=== PATIENT | male | born 1955 | race Caucasian/White ===

== ENCOUNTER 2016-11-17 12:22 | Emergency (ER) | payer OTHER ==
[2016-11-17] MEDS ORDERED: SODIUM CHLORIDE 0.9% 1,000 ML IV ONE (12:58)
[2016-11-17] MEDS ORDERED: ADENOSINE 6 MG/2 ML VIAL IVP ONE ×2 (12:58→13:15)
[2016-11-17] MEDS ORDERED: ADENOSINE 6 MG/2 ML VIAL IVP STA (12:58)
[2016-11-17] MEDS ORDERED: METOPROLOL TARTRATE 50 MG TABLET PO STA (13:45)
[2016-11-17] MEDS ORDERED: METOPROLOL TARTRATE 25 MG TABLET ONE (13:49)
== END 2016-11-17 14:12 | disposition home or self-care (01) ==
DX: I47.1 Supraventricular tachycardia (principal); I10 Essential (primary) hypertension; E78.00 Pure hypercholesterolemia, unspecified; K21.9 Gastro-esophageal reflux disease without esophagitis
CPT/HCPCS: 36415; 80053; 83690; 83735; 84100; 85025; 93005; 93010; 96374; 99284; A9270; J0153

== ENCOUNTER 2017-10-20 07:58 | Emergency (ER) | payer OTHER ==
--- NOTE | 2017-10-20 08:54 | ED Physician Documentation ---
History of Present Illness - Stated complaint Stated Complaint: R EYE REDNESS - Chief complaint Chief Complaint: Heent - Additonal information Additional information: hx from pt 62 male to ER with erythema R eye awoke with today no trauma no dc no vision change has dry eyes chroncially his concern is pink eye Review of Systems Eyes: reports: Other (erythema). denies: Decreased vision PD PAST MEDICAL HISTORY - Past Medical History Cardiovascular: Hypertension, High cholesterol Respiratory: None Neuro: None Endocrine/Autoimmune: Other GI: GERD : Frequency Psych: None Musculoskeletal: None - Past Surgical History Past Surgical History: No - Present Medications Home Medications: Ambulatory Orders Medication Instructions Recorded Confirmed Aspirin [Aspir 81] 81 mg PO DAILY 08/23/14 01/14/16 Atorvastatin Calcium [Lipitor] 40 mg PO DAILY 08/23/14 11/17/16 Multivitamin [Multivitamins] 1 tab PO DAILY 08/23/14 01/14/16 Krill/Ringgold-3/Dha/Epa/Lipids [Hm 1 each PO .FREQ 01/14/16 11/17/16 Megakrill 500 mg Softgel] Losartan [Cozaar] 100 mg PO DAILY 01/14/16 11/17/16 Metoprolol Tartrate [Lopressor] 25 mg PO BID #60 tablet 11/17/16 metFORMIN [Glucophage] 500 mg PO DAILY 11/17/16 11/17/16 - Allergies Allergies/Adverse Reactions: Allergies Allergy/AdvReac Type Severity Reaction Status Date / Time ibuprofen AdvReac Unknown Verified 11/17/16 12:45 - Social History Does the pt smoke?: No Smoking Status: Never smoker Does the pt drink ETOH?: No Does the pt have substance abuse?: No - Immunizations Immunizations are current?: Yes - POLST Patient has POLST: No PD ED PE NORMAL - Vitals Vital signs reviewed: Yes - HEENT HEENT: PERRL, EOMI, Other (subconj hemorrhage, globes soft, PERRL, no dc, no lid erythema) Results - Vitals Vitals: Vital Signs - 24 hr 10/20/17 08:12 Temperature 36.2 C L Heart Rate 79 Respiratory 17 Rate Blood Pressure 180/91 H O2 Saturation 96 Oxygen O2 Source Room air Departure - Departure Disposition: 01 Home, Self Care Clinical Impression: Subconjunctival hemorrhage Qualifiers: Laterality: right Qualified Code(s): H11.31 - Conjunctival hemorrhage, right eye Condition: Good Instructions: ED Eye Injury Subconj Hemorrhage Follow-Up: MARCUS CRUZ MD [Primary Care Provider] - Comments: This does not look like pink eye. It looks like a broken blood vessel over the sclera It should get better on its own over about 2 weeks You are not contagious and can go back to work. If you do develop discharge and matting, call me in the ER anytime between 7AM and 5 PM the next three days Please get your blood pressure rechecked - it was high today Forms: Activity restrictions
[2017-10-20 09:06] VITALS: BP 145/84
== END 2017-10-20 09:02 | disposition home or self-care (01) ==
LOC: ED 07:58
DX: H11.31 Conjunctival hemorrhage, right eye (principal); I10 Essential (primary) hypertension; E78.00 Pure hypercholesterolemia, unspecified
CPT/HCPCS: 99282; 99283

== ENCOUNTER 2020-09-21 09:41 | Outpatient (CLI) | payer MEDICARE, OTHER ==
--- NOTE | 2020-09-21 12:27 | SLEEP CARE CONSULTATION ---
Information from patient questionnaire entered by Mame Watkins. I have reviewed and concur with the information entered by Mame Watkins. This document represents the service I personally performed and the decisions made by me, Soumya Caro MD, [facility]. History of Present Illness Service Date and Time: 09/21/2020 0941 Reason for Visit: New patient Chief Complaint: reports: Observed pauses in breathing (causes abrupt waking up) Date of Onset: 10 plus years Usual bedtime: 9 - 10 pm Time it takes to fall asleep: depends on sinuse drainage - sometimes 4 hours Snores at night: Yes Observed to quit breathing while asleep: No Sleeps alone due to snoring: Yes Number of times waking at night: 3-4 Reasons for waking at night: reports: Bathroom (taking Januvia, makes me urinate frequently) Toss, Turn, or Twitch while sleeping: Yes Recalls having dreams: Yes Usually gets out of bed at: 7:30- 9 am Feels refreshed in the morning: No Morning headache: No Sleepy or fatigued during the day: Yes Ever fallen asleep while driving: No Takes day naps: Yes Dreams during day naps: No Prior sleep studies: No Additional HPI information: I had the pleasure of seeing Mr. Franklin today regarding the possibility of him having a sleep disorder. As you know, he is a 65 year old gentleman who complains of loud snore and observed apneas for the past 10+ years. His has obstructive sleep apnea-hypopnea and uses a CPAP. He reports waking up frequently at night to urinate. He wakes up feeling tired and complains of excessive daytime sleepiness. - Parasomnia Symptoms Ever been unable to move upon waking from sleep: No Ever felt weak in the knees when startled or emotional: No Bothered by creepy, crawly, restless sensations in legs: No Problems with memory or concentration: Yes Subjective Initial [place] Sleepiness Scale score: 14 (in 2020) Past Medical History Past Medical History: reports: Hypertension, Diabetes, Arthritis, Arrythmia, GERD, Other (superventiculartacharcardia, diviculitus) Social History The patient's occupation is a RETIRED. Patient is and lives in [place]. Have you smoked in the past 12 months: No Alcohol use: No Caffeine use: No Allergies and Home Medications Drug allergies reviewed: Yes Home medication list reviewed: Yes Review of Systems Weight loss over past 5 years: 14 Cardiovascular: reports: high blood pressure, irregular heart rate or pulse Gastrointestinal: reports: heartburn Urinary: reports: frequency Neurological: denies: headaches, seizure, head trauma, disorientation, speech dysfunction, gait or balance problems, fainting or unconsciousness, other Ear/Nose/Throat: reports: nasal congestion, sinus problems, hoarseness Endocrine: reports: increased urination Musculoskeletal: reports: joint pain, neck pain, back pain, joint swelling Immunologic: denies: sneezing, rash, itching, allergies to food or environment, other Physical Exam Vital signs obtained and entered by: I had the pleasure of seeing Mr. Franklin today regarding the possibility of h Height: 5 ft 10 in Weight: 218 lb Body Mass Index: 31.2 BMI Classification: Obese Impression and Plan IMPRESSION: 1. Obstructive Sleep Apnea-Hypopnea Syndrome, as suggested by history of loud and irregular snoring, observed cessation of breath while asleep, frequent awakenings during the night, unrefreshed sleep, and daytime hypersomnolence. Narrow oropharynx and obesity are common predisposing factors for obstructive sleep apnea-hypopnea syndrome. Untreated obstructive sleep apnea can also cause hypertension. I recommend proceeding to polysomnography to confirm the diagnosis and to assess severity. I informed the patient of what the sleep studies involve and after some discussion, he agreed to proceed. Plan: 1. Schedule an in-laboratory polysomnography 2. Avoid long distance driving or when feeling sleepy. 3. Avoid alcohol, sedative and muscle relaxant around bedtime. 4. Attempt to lose weight. 5. Return for a follow up after the sleep study. Time Spent with Patient (minutes): 15
== END 2020-09-21 09:42 | disposition home or self-care (01) ==
LOC: SC 09:41
PROVIDERS: ATTEND Internal Medicine Pulmonary Disease
DX: G47.10 Hypersomnia, unspecified (principal); G47.8 Other sleep disorders; R06.81 Apnea, not elsewhere classified; R06.83 Snoring; E66.9 Obesity, unspecified; Z68.31 Body mass index [BMI] 31.0-31.9, adult
CPT/HCPCS: 99202; G0463; 99212

== ENCOUNTER 2021-03-04 19:16 | Outpatient (CLI) | payer MEDICARE, OTHER | END 2021-03-04 19:17 | disposition home or self-care (01) | LOC: SC 19:16 | PROVIDERS: ATTEND Internal Medicine Pulmonary Disease | DX: G47.33 Obstructive sleep apnea (adult) (pediatric) (principal); G47.61 Periodic limb movement disorder | CPT/HCPCS: 95810 ==

== ENCOUNTER 2021-03-15 10:55 | Outpatient (CLI) | payer MEDICARE, OTHER ==
--- NOTE | 2021-03-15 17:56 | SLEEP CARE CONSULTATION ---
Information from patient questionnaire entered by Betty Mcmillan. I have reviewed and concur with the information entered by Betty Mcmillan. This document represents the service I personally performed and the decisions made by me, Soumya Caro MD, [facility]. History of Present Illness Service Date and Time: 03/15/2021 1055 Initial [place] Sleepiness Scale score: 14 Current [place] Sleepiness Scale score: 13 Additional HPI information: HPI: Mr. Franklin returned for follow up of the sleep study he had on 03/04/2021. The polysomnography showed that the patient had poor sleep efficiency due to frequent and prolonged awakenings throughout the night. The sleep architecture was abnormal for sleep fragmentation and lack of REM sleep. Respiratory monitoring showed severe obstructive sleep apnea-hypopnea (AHI = 40.0) associated with frequent arousals, oxyhemoglobin desaturation and mild hypoxia (albert oxygen saturation of 88%). The patient only slept supine during this study (supine AHI = 40.0; non-supine = 0.00). Snore was light in intensity. There was mild periodic leg movement of sleep not contributing to the sleep fragmentation. Cardiac rhythm was normal sinus rhythm without significant arrhythmia. No abnormal behavior (parasomnia) observed during the night. The patient was informed of these findings. I explained to him the pathophysiology behind obstructive sleep apnea. We then spent quite a bit of time discussing different treatment options. For mild obstructive sleep apnea, surgery and oral appliance are alternatives to nasal CPAP therapy but in moderate or severe cases, nasal CPAP is the most effective and reliable treatment. Weight loss in an obese individual is strongly recommended. After some discussion, he opted to go with the nasal CPAP therapy. I explained to him how CPAP machine works and what to expect when using the machine. He is quite familiar with the treatment because his is on the treatment. Sleep Study - Results Type of Sleep Study: Polysomnography Prior sleep studies: Yes Year and Where: 02/2021 [facility] Allergies and Home Medications Drug allergies reviewed: Yes Home medication list reviewed: Yes Review of Systems Review of systems same as previous: Yes Physical Exam Height: 5 ft 10 in Weight: 218 lb Body Mass Index: 31.2 BMI Classification: Obese Impression and Plan IMPRESSION: 1. Obstructive Sleep Apnea-Hypopnea Syndrome, severe, associated with mild hypoxemia and sleep fragmentation. Obviously this is the cause of the patients symptoms of unrefreshed sleep, and excessive daytime sleepiness. As mentioned above, the patient will be started on CPAP set at 5 - 15 cmH2O. Depending on his response and compliance he may be brought back for an overnight CPAP titration study. PLAN: 1. Prescription made for an autoCPAP, heated humidifier, and related supplies. 2. Attempt to lose weight and avoid alcohol consumption near bedtime. 3. The patient is again cautioned about driving until his sleepiness completely resolves on the CPAP therapy. 4. Return for follow up after one month of using the CPAP. Visit Type: In Office Time Spent with Patient (minutes): 15 Provider Statement: I spent 100% of the Face to Face Visit with the patient with greater than 50% spent counseling the patient and coordination of care.
== END 2021-03-15 10:56 | disposition home or self-care (01) ==
LOC: SC 10:55
PROVIDERS: ATTEND Internal Medicine Pulmonary Disease
DX: G47.33 Obstructive sleep apnea (adult) (pediatric) (principal); E66.9 Obesity, unspecified; Z68.31 Body mass index [BMI] 31.0-31.9, adult
CPT/HCPCS: 99212; G0463

== ENCOUNTER 2021-05-31 13:18 | Outpatient (CLI) | payer MEDICARE, OTHER ==
--- NOTE | 2021-05-31 14:33 | SLEEP CARE CONSULTATION ---
Information from patient questionnaire entered by Betty Mcmillan. I have reviewed and concur with the information entered by Betty Mcmillan. This document represents the service I personally performed and the decisions made by me, Soumya Caro MD, [facility]. History of Present Illness Service Date and Time: 05/31/2021 1318 Previous diagnosis: Severe, Obstructive Sleep Apnea-Hypopnea Syndrome AHI: 40 Reason for follow up: other (2 month; set up 05/07 ) Prior sleep studies: Yes Year and Where: 02/2021 [facility] Type of Sleep Study: Polysomnography HPI additional information: Mr. Franklin was diagnosed to have severe obstructive sleep apnea-hypopnea syndrome and returns today for follow up of CPAP therapy. The patient purchased the d evice from [employer] and was fitted with a [id number] mask. He uses the device nightly but not all through the night. The compliance report shows that he uses the device 20 nights out of the past 20 nights, averaging 4.3 hours a night. He complains of nasal congestion and chest pain. He has not changed the heated humidifier setting. He thinks that the pressure of 5 - 11 cmH2O is too low and causes him to feel suffocated. On the CPAP therapy he has not noticed any improvement. His uses a CPAP. [place] Sleepiness Scale score is 8. The average residual AHI is 10.3; and average time in large leak per day is 0 minutes a night. The 90th percentile pressure is 10.9 cmH2O. Sleep Study - Results Type of Sleep Study: Polysomnography Prior sleep studies: Yes Year and Where: 02/2021 [facility] CPAP Compliance Data - Data Reviewed with Patient Average duration of nightly device use: 4 hours 18 minutes Compliance rate %: 65 ((last 20 days)) Current pressure setting (cmH2O): 5-11 Average residual AHI: 10.3 Central apnea: 8.5 Obstructive apnea: 1.1 Hypopnea: .5 Subjective Initial [place] Sleepiness Scale score: 14 Allergies and Home Medications Drug allergies reviewed: Yes Home medication list reviewed: Yes Review of Systems Review of systems same as previous: Yes Physical Exam Height: 5 ft 10 in Weight: 220 lb Body Mass Index: 31.5 BMI Classification: Obese Impression and Plan IMPRESSION: 1. Obstructive Sleep Apnea-Hypopnea Syndrome, severe (AHI was 40.0), with the patient struggling to use his CPAP. For his nasal congestion, I recommend raising the humidity. I will raise the pressure so that he would not feel suffocated. PLAN: 1. AutoCPAP increased to 8 - 12 cm H2O via the modem. 2. Try Respironics Wisp nasal mask and ResMed P30i nasal pillows. 3. Increase the heated humidifier setting. 4. Return in one month for follow up or earlier if there is any problem with the treatment. Follow up with Sleep Care in: 1-2 months Visit Type: In Office Time Spent with Patient (minutes): 15 Provider Statement: I spent 100% of the Face to Face Visit with the patient with greater than 50% spent counseling the patient and coordination of care.
== END 2021-05-31 13:19 | disposition home or self-care (01) ==
LOC: SC 13:18
PROVIDERS: ATTEND Internal Medicine Pulmonary Disease
DX: G47.33 Obstructive sleep apnea (adult) (pediatric) (principal); E66.9 Obesity, unspecified; Z68.31 Body mass index [BMI] 31.0-31.9, adult
CPT/HCPCS: 99212; G0463

== ENCOUNTER 2021-07-19 10:36 | Outpatient (CLI) | payer MEDICARE, OTHER ==
[2021-07-19 13:06] VITALS: BP 164/94
--- NOTE | 2021-07-19 13:06 | SLEEP CARE CONSULTATION ---
Information from patient questionnaire entered by Ina Jvaier MA. I have reviewed and concur with the information entered by Ina Javier MA. This document represents the service I personally performed and the decisions made by me, Soumya Caro MD, [facility]. History of Present Illness Service Date and Time: 07/19/2021 1036 Previous diagnosis: Severe, Obstructive Sleep Apnea-Hypopnea Syndrome AHI: 10.3 ([facility] 2020) Reason for follow up: one month Equipment type: CPAP Mask style: Nasal pillows Prior sleep studies: Yes Year and Where: 02/2021 [facility] Type of Sleep Study: Polysomnography HPI additional information: Mr. Franklin was diagnosed to have severe obstructive sleep apnea-hypopnea syndrome and returns today for follow up of CPAP therapy. The patient purchased the device from [employer] and was fitted with a [id number] mask. He uses the device nightly but not all through the night. The compliance report shows that he uses the device 28 nights out of the past 30 nights, averaging 4.2 hours a night. The > 4 hour compliance rate for the past 30 days is 53%. He thinks that the pressure of 8 16.6 cmH2O is still too low. He changes the pressure himself. His uses a CPAP. [place] Sleepiness Scale score is 16. The average residual AHI 7.7 (was 10.3 last month); and average time in large leak per day is 0.3 minutes a night. The 90th percentile pressure is 12.7 cmH2O. Sleep Study - Results Type of Sleep Study: Polysomnography Prior sleep studies: Yes Year and Where: 02/2021 [facility] CPAP Compliance Data - Data Reviewed with Patient Average duration of nightly device use: 4 HOURS 2 MINUTES Compliance rate %: 53 Current pressure setting (cmH2O): 6-16.6 Average residual AHI: 7.7 Central apnea: 6.2 Obstructive apnea: .5 Subjective Missed days of use due to: reports: travel, other (sinusis) Patient concerns: reports: nasal congestion On therapy, patient: reports: other (stop breathing) Initial [place] Sleepiness Scale score: 14 (2020) Current [place] Sleepiness Scale score: 16 (2020) Allergies and Home Medications Drug allergies reviewed: Yes Home medication list reviewed: Yes Review of Systems Review of systems same as previous: Yes Physical Exam Vital signs obtained and entered by: Ar JAVIER CMA AABRODY Blood Pressure: 164/94 (left) Cuff size: wrist Heart Rate: 86 O2 Saturation: 96 (with mask) Height: 5 ft 10 in Weight: 235 lb Body Mass Index: 33.7 BMI Classification: Obese Impression and Plan IMPRESSION: 1. Obstructive Sleep Apnea-Hypopnea Syndrome, severe (AHI was 40.0), with the patient still has not met the compliance criteria. He has 16 more days left in the 3-month trial period. He will use it more than 4 hours a night every night to be able to keep the machine. He also questions the validity of the in-laboratory polysomnography because he only slept on his back, something he does not do at home. PLAN: 1. Raise the pressure range to 10 16.6 cmH2O (raising the ceiling in his case does not result in higher overall pressure). 2. Use the device at least 4 hours a night the next 16 nights. 3. Order a home sleep apnea test (HSAT) to see if he has significant sleep disordered breathing when not sleeping on his back. 4. Return in one month for follow up or earlier if there is any problem with the treatment. Follow up with Sleep Care in: 1-2 months Visit Type: In Office Time Spent with Patient (minutes): 15 Provider Statement: I spent 100% of the Face to Face Visit with the patient with greater than 50% spent counseling the patient and coordination of care.
== END 2021-07-19 10:37 | disposition home or self-care (01) ==
LOC: SC 10:36
PROVIDERS: ATTEND Internal Medicine Pulmonary Disease
DX: G47.33 Obstructive sleep apnea (adult) (pediatric) (principal); E66.9 Obesity, unspecified; Z68.33 Body mass index [BMI] 33.0-33.9, adult
CPT/HCPCS: 99212; G0463

== ENCOUNTER 2021-08-16 08:52 | Outpatient (CLI) | payer MEDICARE, OTHER | END 2021-08-16 08:53 | disposition home or self-care (01) | LOC: SC 08:52 | PROVIDERS: ATTEND Internal Medicine Pulmonary Disease | DX: G47.33 Obstructive sleep apnea (adult) (pediatric) (principal); E66.9 Obesity, unspecified; Z68.33 Body mass index [BMI] 33.0-33.9, adult | CPT/HCPCS: G0399 ×2; 95806 ==

== ENCOUNTER 2021-09-06 10:36 | Outpatient (CLI) | payer MEDICARE, OTHER ==
[2021-09-06 12:51] VITALS: BP 135/83
--- NOTE | 2021-09-06 12:51 | SLEEP CARE CONSULTATION ---
Information from patient questionnaire entered by Ina Javier MA. I have reviewed and concur with the information entered by Ina Javier MA. This document represents the service I personally performed and the decisions made by me, Soumya Caro MD, [facility]. History of Present Illness Service Date and Time: 09/06/2021 1036 Reason for follow up: with sleep study, other (F\U COMPLIANCE AND HST) Prior sleep studies: Yes Year and Where: 02/2021 [facility] Type of Sleep Study: Polysomnography HPI additional information: HPI: Mr. Franklin was diagnosed to have severe obstructive sleep apnea-hypopnea syndrome and returns today for follow up of CPAP therapy. The patient purchased the device from [employer] and was fitted with a [id number] mask. He used the device nightly until August 05. The patient did meet the compliance criteria between 07/01 and 07/30/21. The compliance data show usage in 28 out of the 30 nights, averaging 4.3 hours a night. The residual AHI is 4.9 and average air leak is 0.3 L/minute. However, he said he was awake most of the time he had the CPAP on and does not wish to use it. He had a home sleep apnea test (HSAT) on 08/16/2021 that shows moderate obstructive sleep apnea-hypopnea with an AHI of 16.0 and albert oxygen saturation of 90%. The patient slept almost exclusively in supine position. Sleep Study - Results Type of Sleep Study: Polysomnography Prior sleep studies: Yes Year and Where: 02/2021 [facility] CPAP Compliance Data - Data Reviewed with Patient Average duration of nightly device use: 4 HOURS 14 MINUTES Compliance rate %: 52 Current pressure setting (cmH2O): 9.6-16.6 Average residual AHI: 5.2 Central apnea: 4.1 Obstructive apnea: .4 Average large leak: 7.0 Subjective Missed days of use due to: reports: other (CAN NOT SLEEP WITH CPAP, ONLY WEARS IT WHILE WATCHING TV OR ACTIVITIES. ) Patient concerns: reports: nasal congestion, other (CPAP AGGRIVATIES HIS CONDITION) Current pressure setting perceived as: PT HAS ADJ Initial [place] Sleepiness Scale score: 14 Current [place] Sleepiness Scale score: 7 (2021) Allergies and Home Medications Drug allergies reviewed: Yes Home medication list reviewed: Yes Review of Systems Review of systems same as previous: Yes Physical Exam Vital signs obtained and entered by: YRN LEON Blood Pressure: 135/83 (LEFT, PULSE 77) Cuff size: wrist Heart Rate: 81 O2 Saturation: 97 (WITH PAPER MASK) Height: 5 ft 10 in Weight: 230 lb (W/O CLOTHES) Body Mass Index: 33.0 BMI Classification: Obese Impression and Plan IMPRESSION: 1. Obstructive Sleep Apnea-Hypopnea Syndrome, moderate (was severe with an AHI of 40.0). The patient is under the impression that it is normal to quit breathing because he does it during the day as well. I explained to him that this is obstructive sleep apnea-hypopnea from his upper airway closing up during sleep. We discussed alternative treatment options. Because he also has chronic nasal congestion, I recommend seeing an ENT specialist next. PLAN: 1. Discontinue CPAP therapy. Prescription will be sent to [facility]. 2. See an ENT. His primary care provider can make the referral if one is required. 3. Try to lose weight. 4. Return for a follow up on as needed basis. Follow up with Sleep Care in: as needed Visit Type: In Office Time Spent with Patient (minutes): 15 Provider Statement: I spent 100% of the Face to Face Visit with the patient with greater than 50% spent counseling the patient and coordination of care.
== END 2021-09-06 10:37 | disposition home or self-care (01) ==
LOC: SC 10:36
PROVIDERS: ATTEND Internal Medicine Pulmonary Disease
DX: G47.33 Obstructive sleep apnea (adult) (pediatric) (principal); E66.9 Obesity, unspecified; Z68.33 Body mass index [BMI] 33.0-33.9, adult
CPT/HCPCS: 99212; G0463

== ENCOUNTER 2021-12-25 07:39 | Outpatient (CLI) | payer MEDICARE, OTHER | END 2021-12-25 07:40 | disposition EMS.NT | LOC: EMS 07:39 | DX: R42 Dizziness and giddiness (principal) ==